=== PATIENT | female | born 1975 | race African-American/Black ===

== ENCOUNTER 2021-06-09 08:16 | Emergency (ER) | payer MEDICAID, OTHER ==
[~2021-06-09] VITALS: Ht 162.6 cm; Wt 147.4 kg
[~2021-06-09 08:16] MED LIST: LISI20TA29 PO; OXYC30TA2 PO
[2021-06-09 08:28] VITALS: BP 120/90
--- NOTE | 2021-06-09 08:30 | NUR ---
BIB FAMILY C/O COUGH X 1 WEEK, 6/10 RIGHT CHEST PAIN , BLURRED VISION X 3 DAYS. PT USES O2 2 LPM AT HOME. O2 SAT 94% AT THIS TIME. COVID TESTED NEGATIVE 5 DAYS AGO. PMH: DM, CHF, ASTHMA
--- NOTE | 2021-06-09 08:39 | NUR ---
BLOOD SUGAR 542 AT THIS TIME.
--- NOTE | 2021-06-09 08:41 | NUR ---
COVID PCR SWAB DONE.
[2021-06-09 10:15] LABS: BASOPHILS # (AUTO) 0.1 K/uL (0.00-0.22); BASOPHILS % (AUTO) 1.3 % (0.0-2.0); EOSINOPHILS # (AUTO) 0.2 K/uL (0-0.4); EOSINOPHILS % (AUTO) 2.4 % (0.0-4.0); HEMATOCRIT 40.8 % (36-48); HEMOGLOBIN 12.8 g/dL (12.0-16.0); LYMPHOCYTES # (AUTO) 2.2 K/uL (2.5-16.5); LYMPHOCYTES % (AUTO) 30.5 % (20.5-51.1); MEAN CORPUSCULAR HEMOGLOBIN 25 pg (27-31); MEAN CORPUSCULAR HGB CONC 31 g/dL (33-37); MEAN CORPUSCULAR VOLUME 80.8 fL (80-94); MONOCYTES # (AUTO) 0.5 K/uL (0.8-1.0); MONOCYTES % (AUTO) 6.7 % (1.7-9.3); NEUTROPHILS # (AUTO) 4.2 K/uL (1.8-7.7); NEUTROPHILS % (AUTO) 59.1 % (42.2-75.2); PLATELET COUNT (AUTO) 256 K/uL (140-450); RED BLOOD CELL COUNT(AUTO) 5.05 MIL/uL (4.20-5.40); WHITE BLOOD COUNT (AUTO) 7.2 K/uL (4.8-10.8)
[2021-06-09 11:44] LABS: ALBUMIN 3.1 g/dL (3.4-5.0); ANION GAP 13.1 (8-16); CARBON DIOXIDE 31.2 mmol/L (21-32); CREATININE 0.9 mg/dL (0.6-1.3); POTASSIUM 4.3 mmol/L (3.5-5.1); TOTAL BILIRUBIN 0.4 mg/dL (0.0-1.0)
[2021-06-09] MEDS ORDERED: METF-924 PO (11:54)
[2021-06-09] MEDS ORDERED: AMOX-1000 PO (11:55)
[2021-06-09 13:20] VITALS: BP 120/90
--- NOTE | 2021-06-09 13:20 | NUR ---
Patient left without d/c paperwork. Patient discharged with v/s stable. Ambulatory with steady gait. All questions addressed prior to discharge. ID band removed. Patient advised to follow up with PMD. Rx of AUGMENTIN AND METFORMIN given.
[2021-06-09 15:25] LABS: APPEARANCE,URINE CLEAR (CLEAR); BILIRUBIN,URINE NEGATIVE (NEGATIVE); BLOOD, URINE NEGATIVE (NEGATIVE); LEUKOCYTE ESTERASE ,URINE NEGATIVE (NEGATIVE); NITRITE, URINE NEGATIVE (NEGATIVE); PH,URINE 5.5 (5.0-9.0); UGLUCOSE 3+ (NEGATIVE)
[2021-06-09 15:48] LABS: COLOR,URINE YELLOW (YELLOW)
== END 2021-06-09 13:20 | disposition home or self-care (01) ==
LOC: MED 08:16
DX: J18.9 Pneumonia, unspecified organism (principal); Z20.822 Contact with and (suspected) exposure to COVID-19; E11.65 Type 2 diabetes mellitus with hyperglycemia; J45.909 Unspecified asthma, uncomplicated; K21.9 Gastro-esophageal reflux disease without esophagitis; I11.0 Hypertensive heart disease with heart failure; I50.9 Heart failure, unspecified; Z76.0 Encounter for issue of repeat prescription; Z79.899 Other long term (current) drug therapy
CPT/HCPCS: 71045; 80053; 81003; 81025; 83880; 84484; 85025; 93005; 99285; U0003